=== PATIENT | female | born 1925 | race Caucasian/White ===

== ENCOUNTER 2016-08-08 04:53 | Inpatient (IN) | payer OTHER ==
[2016-08-08] MEDS ORDERED: ACETAMINOPHEN INJECTION 100 ML IVPB ONE (05:17)
--- NOTE | 2016-08-08 05:18 | PDOC ---
[id number]1RvFWLTJNFPNGXREZ0EOHRFcLCNHl2pWZUViKfTDNJPqO RsZQAAeJxztooJKMpPL0 jRgHnxMWszGC6DLIrBhelLyaQ2YcWRmcrvFz2hLr3TkuFQ8/ TIv6GQK6nVE82EYv0UvdmZYLtBITdjPhCrBNB6SlR8RxB9KSo9ZWF1TBZcUoAYbs5NBZkXMwUu3lg/ XFEEXQmDSNBNv4C7r3XeJJITjGvouF9Dk0pET0luUQQ1emDWsAG0IYWBIIDbaqeEuPUCFbNYGADNzBth tcLfvBJDEMvd708cRfBtoWZ + VIs2iAUFPL3zx6hycIa3U2IFOpumxFhB9OKVayGo6TkLMf0ZZIbiKJoWXQ5dXDw2lA1NRrVvFc4uHGaN ZqDKFtDNKEmg0nX07ND9y4m2K1KzX7TlppKTJsvN0ncjJupMdw6oEGG6SNqcXtm9RCo3pIU65dwvfueo GahIPQ /WoIAJG9wT+7gQV3AWaGJzr8CeYNlYMZob+ rS2YuN2gUqCjcjlPscHTQZJIil5WfakQS6tvbD5JW9RykO7rVU32++GFGIlQmHZDF0zvk8N9VTuCk// qufb2M+2mzL2Ka3rgp1jIkavW0bE+ 3yWctNQDbh29sx8dJqn07LQ5UVOXPMaj7tiV7J50D7bMSKQaTQjyWXsw5kia2SY3+IzpOtAs9+Zxa/ sug4ZNWhFS4h/3x+l/p0jj06xK2gTPhM9+ ALGN7zyG3fqKP676CdDMZqFjtE8G66qqM3B2YnQIjYoilXjKZV6zAxeqVPM6td3MEoBs/ pFwFrrg3Hi9cgu9JJvdhp8R57IN6/9nFlTpQbRzT/h0r2N0ed/+ V125iDD7pYbsy6APv1D1q36De0I2Or9nNfDCZ5LH9nb+4uMN3JAAIhK0/lr1rnYARtF+ EFmzOHqyNlPFJKV6BnWfiA57HvpnasHi3/ zg7v7WrCo4FjIORltKZq1IBFZpcfOJHyrbjJxICFBQMdHEOSV0WW9ky3r+AyFBuhweoqCM/QH+ EYqMixsF7LLONQKSVOLEH3SYTG= 08/08/16 05:14 - RADIOLOGY Radiology Studies Ordered: Category Date Time Status CHEST X-RAY PORTABLE* [RAD] Stat Radiology 08/08/16 05:09 Ordered Medical Decision Making - Medical Decision Making 08/08/16 05:17 agree with care from THOMAS BegumDC/Admit/Observation/Transfer Diagnosis at time of Disposition: CHF (congestive heart failure), Renal insufficiency, Pneumonia - Discharge Dispostion Condition at time of disposition: Stable
[2016-08-08 05:37] LABS: BASOPHIL 0.7 % (0-2.0); EOSINOPHIL 1.8 % (0-4.5); MCH 28.2 pg (25.7-33.7); MCHC 31.9 g/dl (32.0-36.0); MEAN CELL VOLUME 88.5 fl (80-96); MEAN PLT VOLUME 8.9 fl (7.5-11.1); NEUTROPHILS 77.2 % (42.8-82.8); PLATELET COUNT 180 K/MM3 (134-434); RDW 17.6 % (11.6-15.6)
[2016-08-08] MEDS ORDERED: LEVOFLOXACIN 500 MG IVPB 100 ML IVPB ONE ×2 (05:43→05:51)
[2016-08-08] MEDS ORDERED: methylPREDNISolone NA SUCC 125 MG/2 ML VIAL IVPB ONE (05:43)
[2016-08-08] MEDS ORDERED: AZITHROMYCIN IVPB 500 MG in DEXTROSE 5%-WATER - 250 ML IVPB ONE (05:43)
[2016-08-08 05:50] LABS: INR 1.15 (0.82-1.09); PROTHROMBIN TIME (PATIENT) 12.7 SEC (9.98-11.88)
[2016-08-08] MEDS ORDERED: methylPREDNISolone NA SUCC 125 MG/2 ML VIAL ONE (05:51)
--- NOTE | 2016-08-08 05:51 | PDOC ---
History of Present Illness - General Chief Complaint: Respiratory Stated Complaint: RESPIRATORY, PALPITATIONS Time Seen by Provider: 08/08/16 05:09 History Source: Patient Exam Limitations: No Limitations - History of Present Illness Initial Comments: 08/08/16 05:46 89yo Female patient presents to ED with family c/o diff breathing, cough and fever for past couple days. Both daughter states mother has been increasingly short of breath. One daughter reported given mother amoxicillin from a previous illness. Denies CP, Abd pain, n/v/d, back pain rash, or any other complaints at this time. Timing/Duration: reports: getting worse, week Severity: reports: severe Possible Cause: Yes: illness exposure Associated Symptoms: reports: cough, fever/chills, shortness of breath Aspirin Received prior to arrival: No: no aspirin today, unknown, 81 mg x 1, 81 mg x 2, 81 mg x 3, 81 mg x 4, 325 mg x 1, provided at home, provided by EMS, provided by ED Past History - Travel Traveled outside of the country in the last 30 days: No Close contact w/someone who was outside of country & ill: No - Past Medical History Allergies/Adverse Reactions: Allergies Allergy/AdvReac Type Severity Reaction Status Date / Time No Known Drug Allergies Allergy Verified 05/27/16 16:18 Home Medications: Ambulatory Orders Carvedilol [Coreg] 6.5 mg PO HS 11/18/13 Furosemide [Lasix -] 20 mg PO HS 11/18/13 Pantoprazole Sodium [Protonix -] 40 mg PO HS 11/18/13 Metolazone 5 mg PO HS 03/16/14 Ferrous Sulfate 325 mg PO DAILY 05/27/16 Simvastatin [Zocor -] 10 mg PO HS 05/27/16 Potassium Chloride Oral Soln [KCl Oral Solution -] 40 meq PO BID cup 05/31/16 Anemia: Yes Cardiac Disorders: Yes (CHF, NE, PACER) CHF: Yes Dementia: Yes GI Disorders: Yes (peptic ulcer,gi bleed) HTN: Yes Hypercholesterolemia: Yes Psychiatric Problems: Yes (ANXIETY) - Surgical History Abdominal Surgery: Yes (HERNIA; TUMOR REMOVED FROM SMALL INTESTINES) Cardiac Surgery: Yes (PACEMAKER) - Immunization History Td Vaccination: Yes Immunization Up to Date: Yes - Psycho/Social/Smoking Cessation Hx Anxiety: No Suicidal Ideation: No Smoking Status: No Smoking History: Never smoked Years of Tobacco Use: 0 Have you smoked in the past 12 months: No Number of Cigarettes Smoked Daily: 0 Cigars Per Day: 0 Information on smoking cessation initiated: No Hx Alcohol Use: No Drug/Substance Use Hx: No Substance Use Type: None Hx Substance Use Treatment: No Respiratory Specific PMHX - Complaint Specific PMHX Angina: No Bronchitis: Yes Pneumonia: Yes Pulmonary Embolus: No TB (Tuberculosis): No Review of Systems - Review of Systems Able to Perform ROS?: Yes Is the patient limited Ecuadorean proficient: Yes Constitutional: Yes: Fever, Malaise. No: Chills HEENTM: No: Nose Congestion Respiratory: Yes: Cough, Shortness of Breath Cardiac (ROS): No: Chest Pain, Palpitations ABD/GI: No: Diarrhea, Nausea, Vomiting : No: Burning, Dysuria, Hematuria Musculoskeletal: No: Back Pain All Other Systems: Reviewed and Negative *Physical Exam - Vital Signs Last Vital Signs Temp Pulse Resp BP Pulse Ox 102.0 F H 85 18 135/82 95 08/08/16 05:25 08/08/16 05:25 08/08/16 05:25 08/08/16 05:25 08/08/16 05:25 - Physical Exam General Appearance: Yes: Disheveled, Moderate Distress, Thin Neck: positive: Trachea midline, Supple Respiratory/Chest: positive: Labored Respiration, Crackles, Wheezing Cardiovascular: positive: Regular Rhythm, Regular Rate, Other (Pacemaker) Gastrointestinal/Abdominal: positive: Normal Bowel Sounds, Flat, Soft Musculoskeletal: positive: Normal Inspection. 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 NML intact, Alert, Normal Mood/Affect, Normal Response ED Treatment Course - LABORATORY CBC & Chemistry Diagram: 08/08/16 05:14 08/08/16 05:14 *DC/Admit/Observation/Transfer Diagnosis at time of Disposition: Renal insufficiency CHF (congestive heart failure) Qualifiers: Congestive heart failure type: unspecified congestive heart failure type Congestive heart failure chronicity: acute on chronic Qualified Code(s): I50.9 - Heart failure, unspecified Pneumonia Qualifiers: Pneumonia type: due to unspecified organism Laterality: right Lung location: lower lobe of lung Qualified Code(s): J18.9 - Pneumonia, unspecified organism - Discharge Dispostion Condition at time of disposition: Stable Admit: Yes Decision to Admit order Date/Time: 08/08/16 06:54 Dr. Ceja admit to Tele
[2016-08-08] MEDS ORDERED: SODIUM CHLORIDE 250 ML IV STA (05:56)
[2016-08-08] MEDS ORDERED: ACETAMINOPHEN 1000 MG/100 ML VIAL (NON FORMULARY) IVPB ONE (05:56)
[2016-08-08 06:01] LABS: ALBUMIN 3.1 g/dl (3.4-5.0); BILIRUBIN,TOTAL 0.5 mg/dL (0.2-1.0); CALCIUM 8.7 mg/dL (8.5-10.1); CREATININE 1.4 mg/dL (0.55-1.02); TOT PROT 6.9 g/dl (6.4-8.2)
[2016-08-08 06:04] LABS: TROPONIN I 0.07 ng/ml (0.00-0.05)
[2016-08-08 06:27] LABS: CALCIUM 8.9 mg/dL (8.5-10.1); MAGNESIUM 1.9 mg/dL (1.8-2.4)
[2016-08-08] MEDS ORDERED: AZITHROMYCIN IVPB 250 ML IVPB ONE (06:29)
--- NOTE | 2016-08-08 08:49 | HP ---
Admitting History and Physical - Primary Care Physician PCP: Calos Snell - Admission Chief Complaint: weakness, fever, dyspnea History of Present Illness: Got sick approx. two days ago with weakness, fever, cough without expectoration , dyspnea and chest tightness. Daughter gave her some amoxicillin left over from past. 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) Heme/Onc: Yes: Anemia - Past Surgical History Past Surgical History: Yes: Cataract Removal, Hernia Repair, Permanent Pacemaker - Advance Directives Advance Directives: No: Living Will, Health Care Proxy, DNR, Organ Donor, Tissue Donor - Smoking History Smoking history: Never smoked Have you smoked in the past 12 months: No Aproximately how many cigarettes per day: 0 - Alcohol/Substance Use Hx Alcohol Use: No - Social History Usual Living Arrangement: Yes: With Child ADL: Independent (needs supervision due to forgetfullness and disorientation but eats and toilets independently) Home Medications - Allergies Allergies/Adverse Reactions: Allergies Allergy/AdvReac Type Severity Reaction Status Date / Time No Known Drug Allergies Allergy Verified 05/27/16 16:18 - Home Medications Home Medications: Ambulatory Orders Carvedilol [Coreg] 6.5 mg PO HS 11/18/13 Furosemide [Lasix -] 20 mg PO HS 11/18/13 Pantoprazole Sodium [Protonix -] 40 mg PO HS 11/18/13 Metolazone 5 mg PO HS 03/16/14 Ferrous Sulfate 325 mg PO DAILY 05/27/16 Simvastatin [Zocor -] 10 mg PO HS 05/27/16 Potassium Chloride Oral Soln [KCl Oral Solution -] 40 meq PO BID cup 05/31/16 Family Disease History - Family Disease History Family History: Unable to Obtain Review of Systems Findings/Remarks: given by daughter - Review of Systems Constitutional: reports: Fever, Lethargy, Weakness. denies: Loss of Appetite Cardiovascular: reports: Palpitations, Shortness of Breath Respiratory: reports: Cough (unable to expectorate), SOB on Exertion. denies: Wheezing Genitourinary: reports: No Symptoms Musculoskeletal: reports: No Symptoms Integumentary: reports: No Symptoms Neurological: reports: No Symptoms Psychiatric: reports: No Symptoms Pain Intensity: 0 Physical Examination Vital Signs: Vital Signs Temperature 102.0 F H 08/08/16 05:25 Pulse Rate 62 08/08/16 07:41 Respiratory Rate 18 08/08/16 07:41 Blood Pressure 103/48 08/08/16 07:41 O2 Sat by Pulse Oximetry (%) 96 08/08/16 07:41 Constitutional: Yes: No Distress, Calm, Other (lying flat on her back) Eyes: Yes: EOM Intact HENT: Yes: Normocephalic Neck: Yes: Trachea Midline Cardiovascular: Yes: Regular Rate and Rhythm, Murmur Respiratory: Yes: Rales (at left base), Rhonchi (scattered) Gastrointestinal: Yes: Normal Bowel Sounds, Soft Edema: Yes Edema: LLE: Trace, RLE: 2+ (chronic) Peripheral Pulses WNL: Yes Neurological: Yes: WNL (oriented to hospital) ...Motor Strength: WNL Psychiatric: Yes: WNL Labs: Laboratory Results - last 24 hr 08/08/16 08/08/16 08/08/16 05:14 05:14 05:14 WBC 7.0 RBC 4.08 Hgb 11.5 Hct 36.1 MCV 88.5 MCHC 31.9 L RDW 17.6 H D Plt Count 180 D MPV 8.9 Neutrophils % 77.2 Lymphocytes % 10.6 D Monocytes % 9.7 Eosinophils % 1.8 Basophils % 0.7 INR 1.15 H Sodium 140 Potassium 4.2 D Chloride 106 Carbon Dioxide 30 Anion Gap 4 L BUN 30 H D Creatinine 1.4 H Creat Clearance w eGFR 35.41 Random Glucose 125 H D Lactic Acid Calcium 8.7 Phosphorus Magnesium Total Bilirubin 0.5 D AST 20 ALT 18 Alkaline Phosphatase 51 Creatine Kinase 40 Troponin I 0.07 H B-Natriuretic Peptide Total Protein 6.9 Albumin 3.1 L 08/08/16 08/08/16 08/08/16 05:14 05:14 05:14 Lactic Acid 1.145 Calcium 8.9 Phosphorus 3.0 D Magnesium 1.9 B-Natriuretic Peptide 26780.76 H Imaging - Results Chest X-ray: Report Reviewed Problem List - Problems (1) CHF (congestive heart failure) Code(s): I50.9 - HEART FAILURE, UNSPECIFIED Qualifiers: Congestive heart failure type: systolic Congestive heart failure chronicity: acute on chronic Qualified Code(s): I50.23 - Acute on chronic systolic (congestive) heart failure (2) Pneumonia Code(s): J18.9 - PNEUMONIA, UNSPECIFIED ORGANISM Qualifiers: Pneumonia type: due to unspecified organism Laterality: right Lung location: lower lobe of lung Qualified Code(s): J18.9 - Pneumonia, unspecified organism (3) Renal insufficiency Code(s): N28.9 - DISORDER OF KIDNEY AND URETER, UNSPECIFIED (4) Anemia Code(s): D64.9 - ANEMIA, UNSPECIFIED Qualifiers: Anemia type: unspecified type Qualified Code(s): D64.9 - Anemia, unspecified (5) Chronic kidney disease (CKD) Code(s): N18.9 - CHRONIC KIDNEY DISEASE, UNSPECIFIED Qualifiers: Chronic kidney disease stage: stage 3 (moderate) Qualified Code(s): N18.3 - Chronic kidney disease, stage 3 (moderate) (6) Dementia arising in the senium and presenium Code(s): F03.90 - UNSPECIFIED DEMENTIA WITHOUT BEHAVIORAL DISTURBANCE Assessment/Plan cultures iv abx iv diuresis cardiac and ID f/up requested d/w daughter-no advanced directives
--- NOTE | 2016-08-08 09:56 | EKG ---
Test Reason : Blood Pressure : / mmHG Vent. Rate : 091 BPM Atrial Rate : 077 BPM P-R Int : 132 ms QRS Dur : 174 ms QT Int : 416 ms P-R-T Axes : 034 -73 096 degrees QTc Int : 511 ms AV SEQUENTIAL OR DUAL CHAMBER ELECTRONIC PACEMAKER WHEN COMPARED WITH ECG OF 28-MAY-2016 12:44, VENT. RATE HAS INCREASED BY 29 BPM Confirmed by GABRIEL CAMPOS MD ([id number]) on 08/08/2016 9:56:09 AM Referred By: Overread By: GABRIEL CAMPOS MD
[2016-08-08] MEDS ORDERED: CEFTRIAXONE 50 ML IVPB SCH (10:00)
[2016-08-08] MEDS ORDERED: FUROSEMIDE 40 MG/4 ML INJECTABLE VIAL IVPUSH SCH (10:00)
[2016-08-08] MEDS ORDERED: POTASSIUM CHLORIDE 40 MEQ/30 ML UNIT DOSE CUP PO SCH (10:00)
[2016-08-08] MEDS ORDERED: FERROUS SO4 325 MG TABLET (FP) PO SCH (10:00)
[2016-08-08] MEDS ORDERED: CARVEDILOL 3.125 MG TABLET (FP) PO SCH (10:00)
[2016-08-08] MEDS ORDERED: CEFTRIAXONE 50 ML ONE (11:00)
[2016-08-08] MEDS ORDERED: FUROSEMIDE 40 MG/4 ML INJECTABLE VIAL ONE (11:01)
--- NOTE | 2016-08-08 12:04 | PN ---
Progress Note (short form) - Note Progress Note: ID consult dictated imp/reccd 89 year old female with mild dementia, CAD lives at home with daughters, daughter had flu with fever, cough 07/30 treated with tamiflu she developed cough new years randy and has had cough with fever since then temp 102 in Ed cxray no clear infiltrate, congestion, ?right base effusion/atelectasis/ infiltrate cough/fever- influenza/pneumonia although influenza screen is negative I have high suspicion for influenza reccd droplet isolation tamiflu levaquin cultures
[2016-08-08] MEDS: OSELTAMIVIR PHOSPHATE 6 MG/1 ML - 60ML BOTTLE PO SCH ×2 (13:15→21:29)
[2016-08-08 13:26] LABS: TROPONIN I 0.07 ng/ml (0.00-0.05)
--- NOTE | 2016-08-08 14:11 | CONS ---
DATE OF CONSULTATION: DATE OF DICTATION: 08/08/2016 HISTORY OF PRESENT ILLNESS: This is an 89-year-old woman. She lives at home with her daughters. She has a history of a fever, cough that started New Year's Martine. Several days prior to this, her daughter was in the emergency room at [facility] where she was diagnosed with influenza and started on Tamiflu. The daughter has been giving her some amoxicillin and Tylenol at home. She has continued to have fever and cough. She comes to the emergency room with complaints of weakness, cough, shortness of breath, and chest tightness. She is currently resting comfortably. She had a fever of 102 on admission. PAST MEDICAL HISTORY: Notable for mild dementia, she is Chinese speaking, aortic stenosis, coronary artery disease, hypertension, diverticulosis, she has a history of GI bleed in the past due to AVMs and a history of anemia. SURGICAL HISTORY: Notable for hernia repair, permanent pacemaker, and cataract. SOCIAL HISTORY: She lives with her daughters. There is no history of any cigarette or substance use. ALLERGIES: She has no known drug allergies. MEDICATIONS: As an outpatient include:1. Coreg. 2. Lasix. 3. Protonix. 4. Metolazone. 5. Ferrous sulfate. 6. Zocor. 7. Potassium. REVIEW OF SYSTEMS: She has been eating well. There has been no nausea, vomiting, diarrhea, or dysuria. PHYSICAL EXAMINATION: VITAL SIGNS: Her temperature was 102, pulse of 62, blood pressure is 103/48, respiratory rate is 18, her O2 saturation is 96% on 4 L, she weighs 90 pounds. HEENT: Normocephalic. Eyes are anicteric. NECK: Supple. LUNGS: Have crackles at both bases. HEART: Regular rate and rhythm. She has a harsh 2/6 systolic murmur. ABDOMEN: Soft, nontender. EXTREMITIES: Without edema. LABORATORIES: Her labs are notable for a white count of 7, hemoglobin 11.5, platelets of 180. INR is 1.15. BUN is 30 and creatinine 1.4 with a glucose of 125. Her influenza screen in the emergency room was negative, and blood cultures are pending. Chest x-ray shows cardiomegaly with congestion, question of a small right pleural effusion versus atelectasis versus small infiltrate. ASSESSMENT: In summary, this is an 89-year-old woman with fever and cough. Although influenza screen is negative, I have a high suspicion for influenza given the recent illness in her daughter. I would recommend droplet isolation, Tamiflu and Levaquin for possible pneumonia as well. She may have mild CHF as well. Would follow up cultures. Check a Legionella urinary antigen for completeness. Sputum culture if possible. CHEY LEDBETTER M.D. [id number]
[2016-08-08 15:43] VITALS: BMI 17.5
--- NOTE | 2016-08-08 17:25 | CONSULT ---
Consultation: REQUESTING PROVIDER: CONSULT REQUEST: We have been asked to medically evaluate this patient for suspected Influenza. HISTORY OF PRESENT ILLNESS: 89 yo F with significant PMHx of CHF s/p ICD, CAD, and dementia presents with a 4 day history of productive cough and worsening SOB. Granddaughter is her historian and states that for the past 4 days her grandmother has had a very productive(green sputum) cough with associated shortness of breath. Denies any hemoptysis. Her family members at home were all diagnosed with Influenza over the holidays.(07/2016). She had fevers at home Tmax-100.7 that resolved with PO tylenol. She was given Amoxicillin 875 x4 and promethazine for cough. NO exacerbating or alleviating factors. Denies CP, FLORES, palpitations, abd. pain , N/ V/D/C. REVIEW OF SYSTEMS: CONSTITUTIONAL:(+) fever, chills, diaphoresis, generalized weakness, malaise, loss of appetite, Absent: weight change HEENT: Absent: rhinorrhea, nasal congestion, throat pain, throat swelling, difficulty swallowing, mouth swelling, ear pain, eye pain, visual changes CARDIOVASCULAR: Absent: chest pain, syncope, palpitations, irregular heart rate, lightheadedness , peripheral edema RESPIRATORY: (+)cough, shortness of breath, Absent: dyspnea with exertion, orthopnea, wheezing, stridor, hemoptysis GASTROINTESTINAL: Absent: abdominal pain, abdominal distension, nausea, vomiting, diarrhea, constipation, melena, hematochezia GENITOURINARY: Absent: dysuria, frequency, urgency, hesitancy, hematuria, flank pain, genital pain MUSCULOSKELETAL: Absent: myalgia, arthralgia, joint swelling, back pain, neck pain SKIN: Absent: rash, itching, pallor HEMATOLOGIC/IMMUNOLOGIC: Absent: easy bleeding, easy bruising, lymphadenopathy, frequent infections ENDOCRINE: Absent: unexplained weight gain, unexplained weight loss, heat intolerance, cold intolerance NEUROLOGIC: Absent: headache, focal weakness or paresthesias, dizziness, unsteady gait, seizure, mental status changes, bladder or bowel incontinence PSYCHIATRIC: (+) dementia Absent: anxiety, depression, suicidal or homicidal ideation, hallucinations. PHYSICAL EXAMINATION Vital Signs - 24 hr 08/08/16 08/08/16 08/08/16 07:41 11:45 13:49 Temperature 97.5 F L Pulse Rate Pulse Rate [ 62 65 63 Radial] Respiratory 18 18 18 Rate Blood Pressure Blood Pressure 103/48 104/51 108/54 [Left Arm] O2 Sat by Pulse 96 96 96 Oximetry (%) 08/08/16 15:33 Temperature Pulse Rate 61 Pulse Rate [ Radial] Respiratory 18 Rate Blood Pressure 108/49 Blood Pressure [Left Arm] O2 Sat by Pulse 96 Oximetry (%) GENERAL:Thin, frail AAO x 2 in no acute distress. HEAD: Normal with no signs of trauma. EYES: Pupils equal, round and reactive to light, extraocular movements intact, sclera anicteric, conjunctiva clear. No lid lag. EARS, NOSE, THROAT: Ears normal, nares patent, oropharynx clear without exudates. Moist mucous membranes. NECK: Normal range of motion, supple without lymphadenopathy, JVD, or masses. LUNGS:Bilateral scattered rhonchi. Bibasilar fine crackles. No wheezes,No accessory muscle use. HEART: Regular rate and rhythm, normal S1 and S2 with 3/6 systolic ejection murmur. ABDOMEN: Soft, nontender,ventral hernia,not distended, normoactive bowel sounds , no guarding, no rebound, no masses. No hepatomegaly or splenomegaly. MUSCULOSKELETAL: Normal range of motion at all joints. No bony deformities or tenderness. No CVA tenderness. UPPER EXTREMITIES: 2+ pulses, warm, well-perfused. No cyanosis. No clubbing. Cap refill <2 seconds. No peripheral edema. LOWER EXTREMITIES: 2+ pulses, warm, well-perfused. No calf tenderness. trace edema LLE and 1+ RLE. NEUROLOGICAL: Cranial nerves II-XII intact. Normal speech. gait not obeserved. Pleasantly demented (currently at baseline.) PSYCHIATRIC: Cooperative. Good eye contact. Appropriate mood and affect. SKIN: Warm, dry, normal turgor, no rashes or lesions noted. Laboratory Results - last 24 hr 08/08/16 12:40 Creatine Kinase 28 Troponin I 0.07 H Active Medications Generic Name Dose Route Start Last Admin Trade Name Freq PRN Reason Stop Dose Admin Atorvastatin Calcium 10 mg 08/08/16 22:00 Lipitor - PO HS MARVIN Carvedilol 3.125 mg 08/08/16 10:00 08/08/16 11:11 Coreg - PO 3.125 mg BID MARVIN Administration Ferrous Sulfate 325 mg 08/08/16 10:00 08/08/16 11:11 Feosol - PO 325 mg DAILY MARVIN Administration Furosemide 40 mg 08/08/16 10:00 08/08/16 11:11 Lasix Injection - IVPUSH 40 mg DAILY MARVIN Administration Levofloxacin 50 mls @ 50 mls/hr 08/09/16 10:00 Levaquin 250 Mg Premixed Ivpb - IVPB DAILY MARVIN Metolazone 5 mg 08/08/16 22:00 Zaroxolyn - PO HS MARVIN Oseltamivir Phosphate 60 mg 08/08/16 12:30 08/08/16 13:15 Tamiflu Oral Suspension - PO 08/12/16 22:01 60 mg BID MARVIN Administration Pantoprazole Sodium 40 mg 08/08/16 22:00 Protonix - PO HS MARVIN Potassium Chloride 40 meq 08/08/16 10:00 08/08/16 11:11 Kcl Oral Solution - PO 40 meq BID MARVIN Administration ASSESSMENT/PLAN: 89 yo F with PMHx CHF, CAD, and dementia admitted for Influenza PNA. Neuro: * Baseline dementia. * h/o TIA 2 mo ago- no ASA due to h/o GI bleeds. * Alprazolam 0.5 mg PRN * Ambien 5mg PO HS Pulmonary: * On dropplet precautions for presumptive Influenza * Continue Tamiflu * Given Levofloxacin 250mg as per ID. * Given 125mg IV solumedrol in ED. * ID consult appreciated. * Supplemental O2 to maintain O2 sat>90% * repeat CXR and labs in AM * follow up Cultures CV: * ICD currently being paced. * h/o Aortic and Mitral valve disease- last echo 6mo ago. with Dr. Snell * Atorvastatin Calcium (Lipitor -) 10 mg PO HS * Carvedilol (Coreg -) 3.125 mg PO BID * Furosemide (Lasix Injection -) 40 mg IVPUSH DAILY * Metalozone 5mg PO HS * HD stable at this time * history of GI bleeds requiring transfusion (last one >1yr ago); On iron supplementation. GI: * h/o GI bleeds * follow H/H * NO ASA Renal: * KO most likely pre-renal Dispo: We will continue to follow the patient. Thank you for this consultative opportunity. Visit type - Emergency Visit Emergency Visit: Yes ED Registration Date: 08/08/16 Care time: The patient presented to the Emergency Department on the above date and was hospitalized for further evaluation of their emergent condition. - New Patient This patient is new to me today: Yes Date on this admission: 08/09/16 - Critical Care Critical Care patient: Yes Total Critical Care Time (in minutes): 33 Critical Care Statement: The care of this patient involved high complexity decision making to prevent further life threatening deterioration of the patient 's condition and/or to evalute & treat vital organ system(s) failure or risk of failure.
--- NOTE | 2016-08-08 19:29 | CONSULT ---
Cardiology Consult (text) - Consultation Consultation Note: Cardiology 89 year old female severe , LV mildly decreased, anemia unknown etiology admitted with flu symptoms PE: vitals stable NASH 4-5/6 lungs clear to decreased breath sounds abdomen soft no leg edema Impression: severe aortic stenosis DDD paced functioning well maybe mild CHF, but BNP very high with mild to moderate CRF Rec: Diurese on metolazone continue current RX Can be discharged with outpatient cardiac follow-up
--- NOTE | 2016-08-08 20:59 | CONSULT ---
Consult Consult Specialty:: Pulm/CCM Reason for Consultation:: Respiratory insufficiency - History of Present Illness Chief Complaint: SOB History of Present Illness: 89 yo F with significant PMHx of CHF s/p ICD, CAD, and dementia presents to ED with c/o productive cough, fever and worsening SOB x4days. As per her granddaughter multiple family members at home were all diagnosed with Influenza over the holidays (07/2016). She was given Amoxicillin 875 x4 and promethazine for cough. She denied CP, FLORES, palpitations, abd. pain , N/V/D/C. In ED VS T102F, HR 85, 135/82, RR18, 95% on room air. Flu swab sent and she was started on Tamiflu and Levaquin for possible flu and CAP coverage. Notable labs WBC 7., BNP, 11, 637, BUN/creat 30/1.4. Cards consulted. Diuresis and cardiac monitoring recommended. 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) - Past Surgical History Past Surgical History: Yes: Cataract Removal, Hernia Repair, Permanent Pacemaker - Alcohol/Substance Use Hx Alcohol Use: No - Smoking History Smoking history: Never smoked Have you smoked in the past 12 months: No Aproximately how many cigarettes per day: 0 - Social History ADL: Independent (needs supervision due to forgetfullness and disorientation but eats and toilets independently) Home Medications - Allergies Allergies/Adverse Reactions: Allergies Allergy/AdvReac Type Severity Reaction Status Date / Time No Known Drug Allergies Allergy Verified 05/27/16 16:18 - Home Medications Home Medications: Ambulatory Orders Carvedilol [Coreg] 6.5 mg PO HS 11/18/13 Furosemide [Lasix -] 20 mg PO HS 11/18/13 Pantoprazole Sodium [Protonix -] 40 mg PO HS 11/18/13 Metolazone 5 mg PO HS 03/16/14 Ferrous Sulfate 325 mg PO DAILY 05/27/16 Simvastatin [Zocor -] 10 mg PO HS 05/27/16 Potassium Chloride Oral Soln [KCl Oral Solution -] 40 meq PO BID cup 05/31/16 Family Disease History - Family Disease History Family History: Unremarkable Review of Systems Unable to obtain ROS, reason: Dementia Physical Exam Vital Signs: Vital Signs Temperature 97.6 F 08/08/16 16:57 Pulse Rate 68 08/08/16 16:49 Respiratory Rate 28 H 08/08/16 16:49 Blood Pressure 111/53 08/08/16 16:49 O2 Sat by Pulse Oximetry (%) 94 L 08/08/16 17:00 Constitutional: Yes: No Distress, Thin Eyes: Yes: WNL HENT: Yes: Normocephalic Neck: Yes: WNL Cardiovascular: Yes: Other (Paced, AICD) Respiratory: Yes: CTA Bilaterally Gastrointestinal: Yes: Normal Bowel Sounds, Soft Renal/: Yes: WNL Extremities: Yes: WNL Edema: No Peripheral Pulses WNL: Yes Integumentary: Yes: WNL Neurological: Yes: Other (Pleasantly demented) Psychiatric: Yes: WNL, Alert Labs: CBC,CMP WBC 7.0 K/mm3 (4.0-10.0) 08/08/16 05:14 RBC 4.08 M/mm3 (3.60-5.2) 08/08/16 05:14 Hgb 11.5 GM/dL (10.7-15.3) 08/08/16 05:14 Hct 36.1 % (32.4-45.2) 08/08/16 05:14 MCV 88.5 fl (80-96) 08/08/16 05:14 MCHC 31.9 g/dl (32.0-36.0) L 08/08/16 05:14 RDW 17.6 % (11.6-15.6) H D 08/08/16 05:14 Plt Count 180 K/MM3 (134-434) D 08/08/16 05:14 MPV 8.9 fl (7.5-11.1) 08/08/16 05:14 Neutrophils % 77.2 % (42.8-82.8) 08/08/16 05:14 Lymphocytes % 10.6 % (8-40) D 08/08/16 05:14 Monocytes % 9.7 % (3.8-10.2) 08/08/16 05:14 Eosinophils % 1.8 % (0-4.5) 08/08/16 05:14 Basophils % 0.7 % (0-2.0) 08/08/16 05:14 Sodium 140 mmol/L (136-145) 08/08/16 05:14 Potassium 4.2 mmol/L (3.5-5.1) D 08/08/16 05:14 Chloride 106 mmol/L (98-107) 08/08/16 05:14 Carbon Dioxide 30 mmol/L (21-32) 08/08/16 05:14 Anion Gap 4 (8-16) L 08/08/16 05:14 BUN 30 mg/dL (7-18) H D 08/08/16 05:14 Creatinine 1.4 mg/dL (0.55-1.02) H 08/08/16 05:14 Creat Clearance w eGFR 35.41 (>60) 08/08/16 05:14 Random Glucose 125 mg/dL (74-106) H D 08/08/16 05:14 Lactic Acid 1.145 mmol/L (0.4-2.0) 08/08/16 05:14 Calcium 8.9 mg/dL (8.5-10.1) 08/08/16 05:14 Phosphorus 3.0 mg/dL (2.5-4.9) D 08/08/16 05:14 Magnesium 1.9 mg/dL (1.8-2.4) 08/08/16 05:14 Total Bilirubin 0.5 mg/dL (0.2-1.0) D 08/08/16 05:14 AST 20 U/L (15-37) 08/08/16 05:14 ALT 18 U/L (12-78) 08/08/16 05:14 Alkaline Phosphatase 51 U/L (45-117) 08/08/16 05:14 Creatine Kinase 28 IU/L (26-192) 08/08/16 12:40 Troponin I 0.07 ng/ml (0.00-0.05) H 08/08/16 12:40 B-Natriuretic Peptide 80618.76 pg/ml (5-450) H 08/08/16 05:14 Total Protein 6.9 g/dl (6.4-8.2) 08/08/16 05:14 Albumin 3.1 g/dl (3.4-5.0) L 08/08/16 05:14 Assessment/Plan 89 yo F with significant PMHx of CHF s/p ICD, CAD, and dementia presents to ED with c/o productive cough, fever and worsening SOB x4days. Started on Flu and CAP coverage. Noted to have elevated BNP. Admitted to ICU with respiratory insufficiency requiring O2 support in setting of CAP+/- CHF exacerbation. Pulm/ID: Respiratory insufficiency -O2 support for o2 sat >95% -Cough control Pulm tilet -Aspiration precaution -Continue Tamiflu and Levaquin -F/u swabs and cultures -Maintain droplet precautions pending result CV: ? CHF exacerbation as e/b elevated BNP; Paced , AICD -Cards consult -Diuresis -ECHO -Replete electrolytes -Cont statin Proph PPI/ venodynes
[2016-08-08] MEDS: ATORVASTATIN CA 10 MG TABLET (FP) PO SCH (21:04)
[2016-08-08] MEDS: PANTOPRAZOLE 40 MG TABLET (FP) PO SCH (21:04)
[2016-08-08] MEDS: CARVEDILOL 3.125 MG TABLET (FP) PO SCH (21:04)
[2016-08-08] MEDS: METOLAZONE 5 MG TABLET PO SCH (21:06)
[2016-08-08] MEDS: POTASSIUM CHLORIDE 40 MEQ/30 ML UNIT DOSE CUP PO SCH (21:06)
[2016-08-08] MEDS: ALPRAZolam 0.25 MG TABLET PO PRN (21:09)
[2016-08-08] MEDS ORDERED: METOLAZONE 5 MG TABLET PO SCH (22:00)
[2016-08-08] MEDS ORDERED: ATORVASTATIN CA 10 MG TABLET (FP) PO SCH (22:00)
[2016-08-08] MEDS ORDERED: PANTOPRAZOLE 20 MG TABLET (FP) PO SCH (22:00)
[2016-08-09 05:59] LABS: BASOPHIL 0.1 % (0-2.0); MCH 28.3 pg (25.7-33.7); MCHC 32.3 g/dl (32.0-36.0); MEAN CELL VOLUME 87.6 fl (80-96); MEAN PLT VOLUME 8.7 fl (7.5-11.1); NEUTROPHILS 75.3 % (42.8-82.8); PLATELET COUNT 193 K/MM3 (134-434); RDW 16.6 % (11.6-15.6); WHITE BLOOD COUNT 4.9 K/mm3 (4.0-10.0)
[2016-08-09 07:22] LABS: ALBUMIN 2.5 g/dl (3.4-5.0); BILIRUBIN,TOTAL 0.3 mg/dL (0.2-1.0); CALCIUM 8.6 mg/dL (8.5-10.1); CREATININE 1.5 mg/dL (0.55-1.02)
--- NOTE | 2016-08-09 08:21 | PN ---
Progress Note (short form) - Note Progress Note: Admitted for fever, lethargy, pneumonia and flu like symptoms. Feels better now. CBC, BMP 08/09/16 05:00 08/09/16 05:00 Vital Signs Period Temp Pulse Resp BP Sys/Torre Pulse Ox Last 24 Hr 97.5 F-98.2 F 61-77 18-32 104-125/49-76 94-96 S1S2 RRR coarse basal rales abd soft NT no edema Imp CHF acute on chronic systolic pneumonia CAD flu-like symptoms HTN CKD Dementia Plan transfer to medical floor continue present care consults appreciated Problem List - Problems (1) CHF (congestive heart failure) Code(s): I50.9 - HEART FAILURE, UNSPECIFIED Qualifiers: Congestive heart failure type: systolic Congestive heart failure chronicity: acute on chronic Qualified Code(s): I50.23 - Acute on chronic systolic (congestive) heart failure (2) Pneumonia Code(s): J18.9 - PNEUMONIA, UNSPECIFIED ORGANISM Qualifiers: Pneumonia type: due to unspecified organism Laterality: right Lung location: lower lobe of lung Qualified Code(s): J18.9 - Pneumonia, unspecified organism (3) Renal insufficiency Code(s): N28.9 - DISORDER OF KIDNEY AND URETER, UNSPECIFIED (4) Anemia Code(s): D64.9 - ANEMIA, UNSPECIFIED Qualifiers: Anemia type: unspecified type Qualified Code(s): D64.9 - Anemia, unspecified (5) Chronic kidney disease (CKD) Code(s): N18.9 - CHRONIC KIDNEY DISEASE, UNSPECIFIED Qualifiers: Chronic kidney disease stage: stage 3 (moderate) Qualified Code(s): N18.3 - Chronic kidney disease, stage 3 (moderate) (6) Dementia arising in the senium and presenium Code(s): F03.90 - UNSPECIFIED DEMENTIA WITHOUT BEHAVIORAL DISTURBANCE
--- NOTE | 2016-08-09 08:22 | PN ---
Progress Note (short form) - Note Progress Note: Feel better less cough Vital Signs Period Temp Pulse Resp BP Sys/Torre Pulse Ox Last 24 Hr 97.5 F-98.2 F 61-77 18-32 104-125/49-76 94-96 cor-rrr lungs bibasilar crackles abd soft,nt ext no edema CBC, BMP 08/09/16 05:00 08/09/16 05:00 Microbiology 08/08/16 05:17 Blood - Peripheral Venous Blood Culture - Preliminary NO GROWTH OBTAINED AFTER 24 HOURS, INCUBATION TO CONTINUE FOR 4 DAYS. 08/08/16 05:14 Blood - Peripheral Venous Blood Culture - Preliminary NO GROWTH OBTAINED AFTER 24 HOURS, INCUBATION TO CONTINUE FOR 4 DAYS. 08/08/16 05:14 Nasopharyngeal Swab Respiratory Virus Panel - Preliminary 08/08/16 05:14 Nasopharyngeal Swab Influenza Types A,B Antigen (JOJO) - Final 08/08/16 05:14 Nasopharyngeal Swab - Final cxray- congestion Current Medications Alprazolam (Xanax -) 0.5 mg PO HS PRN PRN Reason: ANXIETY Last Admin: 08/08/16 21:09 Dose: 0.5 mg Atorvastatin Calcium (Lipitor -) 10 mg PO HS [facility] Last Admin: 08/08/16 21:04 Dose: 10 mg Carvedilol (Coreg -) 3.125 mg PO BID [facility] Last Admin: 08/08/16 21:04 Dose: 3.125 mg Ferrous Sulfate (Feosol -) 325 mg PO DAILY [facility] Furosemide (Lasix Injection -) 40 mg IVPUSH DAILY [facility] Levofloxacin (Levaquin 250 Mg Premixed Ivpb -) 50 mls @ 50 mls/hr IVPB DAILY [facility] Metolazone (Zaroxolyn -) 5 mg PO HS [facility] Last Admin: 08/08/16 21:06 Dose: 5 mg Oseltamivir Phosphate (Tamiflu Oral Suspension -) 60 mg PO BID [facility] Stop: 08/12/16 22:01 Last Admin: 08/08/16 21:29 Dose: 60 mg Pantoprazole Sodium (Protonix -) 40 mg PO HS [facility] Last Admin: 08/08/16 21:04 Dose: 40 mg Potassium Chloride (Kcl Oral Solution -) 40 meq PO BID [facility] Last Admin: 08/08/16 21:06 Dose: 40 meq a/p fever/cough- cannot r/o pneumonia or influenza continue tamiflu and levaquin f/u cultures f/u legionella antigen chf/cad/aortic stenosis- per cardiology shona- Problem List - Problems (1) Pneumonia Code(s): J18.9 - PNEUMONIA, UNSPECIFIED ORGANISM Qualifiers: Pneumonia type: due to unspecified organism Laterality: right Lung location: lower lobe of lung Qualified Code(s): J18.9 - Pneumonia, unspecified organism (2) CHF (congestive heart failure) Code(s): I50.9 - HEART FAILURE, UNSPECIFIED Qualifiers: Congestive heart failure type: systolic Congestive heart failure chronicity: acute on chronic Qualified Code(s): I50.23 - Acute on chronic systolic (congestive) heart failure (3) Renal insufficiency Code(s): N28.9 - DISORDER OF KIDNEY AND URETER, UNSPECIFIED
[2016-08-09] MEDS ORDERED: PT OWN MED DRAWER 7, Y5N ONE ×4 (08:44→20:46)
[2016-08-09] MEDS: POTASSIUM CHLORIDE 40 MEQ/30 ML UNIT DOSE CUP PO SCH (09:59)
[2016-08-09] MEDS: LEVOFLOXACIN 250 MG IVPB 50 ML IVPB SCH (09:59)
[2016-08-09] MEDS: CARVEDILOL 3.125 MG TABLET (FP) PO SCH ×2 (09:59→21:18)
[2016-08-09] MEDS: FUROSEMIDE 40 MG/4 ML INJECTABLE VIAL IVPUSH SCH (09:59)
[2016-08-09] MEDS: OSELTAMIVIR PHOSPHATE 6 MG/1 ML - 60ML BOTTLE PO SCH ×2 (10:00→21:19)
[2016-08-09] MEDS ORDERED: AZITHROMYCIN 250 MG TABLET (FP) PO SCH (10:00)
[2016-08-09] MEDS ORDERED: FERROUS SO4 325 MG TABLET (FP) PO SCH (10:00)
--- NOTE | 2016-08-09 11:29 | PN ---
Physical Exam: SUBJECTIVE: Patient seen and examined at bedside. No overnight events. No new complaints. Feeling better. Breathing improved. Denies CP, FLORES, Palpitations, N/ V. OBJECTIVE: Vital Signs Period Temp Pulse Resp BP Sys/Torre Pulse Ox Last 24 Hr 97.5 F-98.2 F 61-77 18-32 104-125/49-76 94-96 GENERAL:Thin, frail AAO x 2 in no acute distress. HEAD: Normal with no signs of trauma. EYES: Pupils equal, round and reactive to light, extraocular movements intact, sclera anicteric, conjunctiva clear. No lid lag. EARS, NOSE, THROAT: Ears normal, nares patent, oropharynx clear without exudates. Moist mucous membranes. NECK: Normal range of motion, supple without lymphadenopathy, JVD, or masses. LUNGS:Bilateral scattered rhonchi. Bibasilar fine crackles. No wheezes,No accessory muscle use. HEART: Regular rate and rhythm, normal S1 and S2 with 3/6 systolic ejection murmur. ABDOMEN: Soft, nontender,ventral hernia,not distended, normoactive bowel sounds , no guarding, no rebound, no masses. No hepatomegaly or splenomegaly. MUSCULOSKELETAL: Normal range of motion at all joints. No bony deformities or tenderness. No CVA tenderness. UPPER EXTREMITIES: 2+ pulses, warm, well-perfused. No cyanosis. No clubbing. Cap refill <2 seconds. No peripheral edema. LOWER EXTREMITIES: 2+ pulses, warm, well-perfused. No calf tenderness. trace edema LLE and 1+ RLE. NEUROLOGICAL: Cranial nerves II-XII intact. Normal speech. gait not obeserved. Pleasantly demented (currently at baseline.) PSYCHIATRIC: Cooperative. Good eye contact. Appropriate mood and affect. SKIN: Warm, dry, normal turgor, no rashes or lesions noted. Laboratory Results - last 24 hr 08/08/16 08/09/16 08/09/16 12:40 05:00 05:00 WBC 4.9 RBC 3.97 Hgb 11.2 Hct 34.8 MCV 87.6 MCHC 32.3 RDW 16.6 H Plt Count 193 MPV 8.7 Neutrophils % 75.3 Lymphocytes % 15.0 D Monocytes % 9.6 Eosinophils % 0.0 D Basophils % 0.1 Sodium 147 H Potassium 4.9 Chloride 110 H Carbon Dioxide 32 Anion Gap 5 L BUN 35 H Creatinine 1.5 H Creat Clearance w eGFR 32.70 Random Glucose 107 H Calcium 8.6 Total Bilirubin 0.3 D AST 11 L D ALT 15 Alkaline Phosphatase 44 L Creatine Kinase 28 Troponin I 0.07 H Total Protein 6.0 L Albumin 2.5 L Active Medications Generic Name Dose Route Start Last Admin Trade Name Freq PRN Reason Stop Dose Admin Alprazolam 0.5 mg 08/08/16 19:30 08/08/16 21:09 Xanax - PO 0.5 mg HS PRN Administration ANXIETY Atorvastatin Calcium 10 mg 08/08/16 22:00 08/08/16 21:04 Lipitor - PO 10 mg HS [facility] Administration Carvedilol 3.125 mg 08/08/16 22:00 08/09/16 09:59 Coreg - PO 3.125 mg BID [facility] Administration Ferrous Sulfate 325 mg 08/09/16 10:45 Feosol - PO DAILY [facility] Furosemide 40 mg 08/09/16 10:00 08/09/16 09:59 Lasix Injection - IVPUSH 40 mg DAILY [facility] Administration Levofloxacin 50 mls @ 50 mls/hr 08/09/16 10:00 08/09/16 09:59 Levaquin 250 Mg Premixed Ivpb - IVPB 50 mls/hr DAILY [facility] Administration Metolazone 5 mg 08/08/16 22:00 08/08/16 21:06 Zaroxolyn - PO 5 mg HS [facility] Administration Oseltamivir Phosphate 60 mg 08/08/16 12:30 08/09/16 10:00 Tamiflu Oral Suspension - PO 08/12/16 22:01 60 mg BID [facility] Administration Pantoprazole Sodium 40 mg 08/08/16 22:00 08/08/16 21:04 Protonix - PO 40 mg HS [facility] Administration Potassium Chloride 40 meq 08/08/16 22:00 08/09/16 09:59 Kcl Oral Solution - PO 40 meq BID [facility] Administration ASSESSMENT/PLAN: 89 yo F with PMHx CHF, CAD, and dementia admitted for Influenza PNA. Neuro: Baseline dementia. h/o TIA 2 mo ago- no ASA due to h/o GI bleeds. Alprazolam 0.5 mg PRN Ambien 5mg PO HS Pulmonary: On dropplet precautions for presumptive Influenza Continue Tamiflu and Levofloxacin 250mg as per ID. ID consult appreciated. Supplemental O2 to maintain O2 sat>90% repeat CXR and labs in AM follow up Cultures CV: ICD currently being paced. h/o Aortic and Mitral valve disease- last echo 6mo ago. with Dr. Snell Atorvastatin Calcium (Lipitor -) 10 mg PO HS Carvedilol (Coreg -) 3.125 mg PO BID Furosemide (Lasix Injection -) 40 mg IVPUSH DAILY Metalozone 5mg PO HS HD stable at this time history of GI bleeds requiring transfusion (last one >1yr ago); On iron supplementation. GI: h/o GI bleeds follow H/H NO ASA Renal: KO most likely pre-renal F/E/N: No IVF at this time Electrolytes WNL repeat AM labs. Sodium controlled diet. Dispo: Patient is stable enough to be transfered to MED/SURG. Visit type - Emergency Visit Emergency Visit: Yes ED Registration Date: 08/08/16 Care time: The patient presented to the Emergency Department on the above date and was hospitalized for further evaluation of their emergent condition. - New Patient This patient is new to me today: No - Critical Care Critical Care patient: Yes Total Critical Care Time (in minutes): 32 Critical Care Statement: The care of this patient involved high complexity decision making to prevent further life threatening deterioration of the patient 's condition and/or to evalute & treat vital organ system(s) failure or risk of failure.
--- NOTE | 2016-08-09 11:31 | PN ---
Teaching Attending Note Name of Resident: Lazaro Stover ATTENDING PHYSICIAN STATEMENT I saw and evaluated the patient. I reviewed the resident's note and discussed the case with the resident. I agree with the resident's findings and plan as documented. SUBJECTIVE: Pt seen and examined in the ICU. Denies shortness of breath or chest pain. No fevers since admission. OBJECTIVE: Last Vital Signs Temp Pulse Resp BP Pulse Ox 97.8 F 71 26 H 123/68 94 L 08/09/16 06:00 08/09/16 11:07 08/09/16 06:00 08/09/16 06:00 08/09/16 11:07 Intake & Output 08/06/16 08/07/16 08/08/16 08/09/16 23:59 23:59 23:59 23:59 Intake Total 200 100 Output Total 400 200 Balance -200 -100 Weight 96 lb 8 oz 94 lb 5.725 oz Gen: NAD at rest Heart: RRR Lung: basilar rales Abd: soft, nontender Ext: no edema CBC, BMP 08/09/16 05:00 08/09/16 05:00 CXR: pulmonary vascular congestion Active Medications Alprazolam (Xanax -) 0.5 mg PO HS PRN PRN Reason: ANXIETY Last Admin: 08/08/16 21:09 Dose: 0.5 mg Atorvastatin Calcium (Lipitor -) [address] [facility] Last Admin: 08/08/16 21:04 Dose: 10 mg Carvedilol (Coreg -) 3.[address] [facility] Last Admin: 08/09/16 09:59 Dose: 3.125 mg Ferrous Sulfate (Feosol -) [address] [facility] Furosemide (Lasix Injection -) [address] [facility] Last Admin: 08/09/16 09:59 Dose: 40 mg Levofloxacin (Levaquin 250 Mg Premixed Ivpb -) 50 mls @ 50 mls/hr IVPB DAILY [facility] Last Admin: 08/09/16 09:59 Dose: 50 mls/hr Metolazone (Zaroxolyn -) [address] [facility] Last Admin: 08/08/16 21:06 Dose: 5 mg Oseltamivir Phosphate (Tamiflu Oral Suspension -) [address] [facility] Stop: 08/12/16 22:01 Last Admin: 08/09/16 10:00 Dose: 60 mg Pantoprazole Sodium (Protonix -) [address] [facility] Last Admin: 08/08/16 21:04 Dose: 40 mg Potassium Chloride (Kcl Oral Solution -) [address] [facility] Last Admin: 08/09/16 09:59 Dose: 40 meq ASSESSMENT AND PLAN: r/o Pneumonia vs Influenza Acute on Chronic LV Diastolic Heart Failure Mitral Regurgitation CAD s/p ICD Dementia - continue antibiotics, tamiflu per ID - lasix, zaroxolyn - monitor urine output, creatinine - O2 to keep SpO2 >90% - d/c standing KCl - PO as tolerated - DVT prophylaxis
[2016-08-09] MEDS: FERROUS SO4 325 MG TABLET (FP) PO SCH (16:52)
[2016-08-09] MEDS: ALPRAZolam 0.25 MG TABLET PO PRN (18:20)
[2016-08-09] MEDS ORDERED: ALPRAZolam 0.25 MG TABLET PO PRN (19:34)
[2016-08-09] MEDS ORDERED: HALOPERIDOL LACTATE 5 MG/ML IM ONE (20:52)
[2016-08-09] MEDS: PANTOPRAZOLE 40 MG TABLET (FP) PO SCH (21:18)
[2016-08-09] MEDS: METOLAZONE 5 MG TABLET PO SCH (21:18)
[2016-08-09] MEDS: ATORVASTATIN CA 10 MG TABLET (FP) PO SCH (21:18)
[2016-08-10] MEDS ORDERED: LORAZEPAM CARPU-JECT 2 MG/ML DISP.SYRIN ONE (00:32)
[2016-08-10] MEDS ORDERED: LORAZEPAM CARPU-JECT 2 MG/ML DISP.SYRIN IVPUSH ONE (04:16)
[2016-08-10] MEDS ORDERED: PT OWN MED DRAWER 7, Y5N ONE ×3 (06:10→21:47)
[2016-08-10 06:37] LABS: BASOPHIL 0.2 % (0-2.0); EOSINOPHIL 0.8 % (0-4.5); MCH 29.3 pg (25.7-33.7); MCHC 33.4 g/dl (32.0-36.0); MEAN CELL VOLUME 87.9 fl (80-96); MEAN PLT VOLUME 8.3 fl (7.5-11.1); NEUTROPHILS 83.2 % (42.8-82.8); PLATELET COUNT 176 K/MM3 (134-434); RDW 16.5 % (11.6-15.6); WHITE BLOOD COUNT 8.4 K/mm3 (4.0-10.0)
--- NOTE | 2016-08-10 08:02 | PN ---
Progress Note, Physician Chief Complaint: Sleeping now after getting sedation during the night Levofloxacin and Oseltamavir - Current Medication List Current Medications: Active Medications Alprazolam (Xanax -) 0.25 mg PO Q8H PRN PRN Reason: ANXIETY Atorvastatin Calcium (Lipitor -) 10 mg PO HS [facility] Last Admin: 08/09/16 21:18 Dose: 10 mg Carvedilol (Coreg -) 3.125 mg PO BID [facility] Last Admin: 08/09/16 21:18 Dose: 3.125 mg Ferrous Sulfate (Feosol -) 325 mg PO DAILY [facility] Last Admin: 08/09/16 16:52 Dose: 325 mg Furosemide (Lasix Injection -) 40 mg IVPUSH DAILY [facility] Last Admin: 08/09/16 09:59 Dose: 40 mg Levofloxacin (Levaquin 250 Mg Premixed Ivpb -) 50 mls @ 50 mls/hr IVPB DAILY [facility] Last Admin: 08/09/16 09:59 Dose: 50 mls/hr Metolazone (Zaroxolyn -) 5 mg PO HS [facility] Last Admin: 08/09/16 21:18 Dose: 5 mg Oseltamivir Phosphate (Tamiflu Oral Suspension -) 60 mg PO BID [facility] Stop: 08/12/16 22:01 Last Admin: 08/09/16 21:19 Dose: 60 mg Pantoprazole Sodium (Protonix -) 40 mg PO [facility] Last Admin: 08/09/16 21:18 Dose: 40 mg - Objective Vital Signs: Vital Signs Temperature 97.8 F 08/10/16 06:00 Pulse Rate 63 08/10/16 07:57 Respiratory Rate 16 08/10/16 07:57 Blood Pressure 128/55 08/10/16 07:57 O2 Sat by Pulse Oximetry (%) 94 L 08/10/16 07:48 Constitutional: Yes: No Distress Neck: Yes: WNL, Supple Cardiovascular: Yes: Regular Rate and Rhythm, S1, S2 Respiratory: Yes: Rhonchi Gastrointestinal: Yes: WNL, Normal Bowel Sounds, Soft. No: Tenderness Edema: No Labs: CBC, BMP 08/10/16 06:00 08/09/16 05:00 INR, PTT INR 1.15 (0.82-1.09) H 08/08/16 05:14 Assessment/Plan Microbiology 08/08/16 19:30 Urine For Antigen Detection Legionella Antigen - Final 08/08/16 19:30 Urine For Antigen Detection Streptococcus pneumoniae Antigen (M - Final 08/08/16 05:14 Nasopharyngeal Swab Influenza Types A,B Antigen (JOJO) - Final 08/08/16 05:14 Nasopharyngeal Swab - Final 08/08/16 05:17 Blood - Peripheral Venous Blood Culture - Preliminary NO GROWTH OBTAINED AFTER 48 HOURS, INCUBATION TO CONTINUE FOR 3 DAYS. 08/08/16 05:14 Nasopharyngeal Swab Respiratory Virus Panel - Preliminary 08/08/16 05:14 Blood - Peripheral Venous Blood Culture - Preliminary NO GROWTH OBTAINED AFTER 48 HOURS, INCUBATION TO CONTINUE FOR 3 DAYS. Laboratory Tests 08/09/16 08/10/16 05:00 06:00 WBC 8.4 D Hgb 12.1 Hct 36.4 Plt Count 176 BUN 35 H Creatinine 1.5 H Assessment Therapy for fever and couph ? Influenza illness Plan Levoflox and Oseltamavit as ordered Transfer when available Stop isolation for influenza no fever and no couph Maggy CARO
[2016-08-10 08:49] LABS: CALCIUM 9.1 mg/dL (8.5-10.1); CREATININE 1.3 mg/dL (0.55-1.02)
[2016-08-10] MEDS: LEVOFLOXACIN 250 MG IVPB 50 ML IVPB SCH (10:10)
[2016-08-10] MEDS: FUROSEMIDE 40 MG/4 ML INJECTABLE VIAL IVPUSH SCH (10:10)
[2016-08-10] MEDS: FERROUS SO4 325 MG TABLET (FP) PO SCH (10:11)
[2016-08-10] MEDS: CARVEDILOL 3.125 MG TABLET (FP) PO SCH ×2 (10:11→21:48)
--- NOTE | 2016-08-10 11:03 | PN ---
Progress Note (short form) - Note Progress Note: Agitated,confused overnight. CBC, BMP 08/10/16 06:00 08/10/16 08:30 Vital Signs Period Temp Pulse Resp BP Sys/Torre Pulse Ox Last 24 Hr 97.6 F-98.0 F 60-88 16-28 107-142/49-101 94-96 S1S2 RRR coarse basal rales abd soft NT no edema eating well Imp CHF acute on chronic systolic pneumonia CAD flu-like symptoms HTN CKD Dementia Plan transfer to medical floor physical therapy medically much better dc planning Problem List - Problems (1) CHF (congestive heart failure) Code(s): I50.9 - HEART FAILURE, UNSPECIFIED Qualifiers: Congestive heart failure type: systolic Congestive heart failure chronicity: acute on chronic Qualified Code(s): I50.23 - Acute on chronic systolic (congestive) heart failure (2) Pneumonia Code(s): J18.9 - PNEUMONIA, UNSPECIFIED ORGANISM Qualifiers: Pneumonia type: due to unspecified organism Laterality: right Lung location: lower lobe of lung Qualified Code(s): J18.9 - Pneumonia, unspecified organism (3) Renal insufficiency Code(s): N28.9 - DISORDER OF KIDNEY AND URETER, UNSPECIFIED (4) Anemia Code(s): D64.9 - ANEMIA, UNSPECIFIED Qualifiers: Anemia type: unspecified type Qualified Code(s): D64.9 - Anemia, unspecified (5) Chronic kidney disease (CKD) Code(s): N18.9 - CHRONIC KIDNEY DISEASE, UNSPECIFIED Qualifiers: Chronic kidney disease stage: stage 3 (moderate) Qualified Code(s): N18.3 - Chronic kidney disease, stage 3 (moderate) (6) Dementia arising in the senium and presenium Code(s): F03.90 - UNSPECIFIED DEMENTIA WITHOUT BEHAVIORAL DISTURBANCE
--- NOTE | 2016-08-10 11:38 | PN ---
Teaching Attending Note Name of Resident: Lazaro Stover ATTENDING PHYSICIAN STATEMENT I saw and evaluated the patient. I reviewed the resident's note and discussed the case with the resident. I agree with the resident's findings and plan as documented. SUBJECTIVE: Pt seen and examined in the ICU. Agitated overnight, given sedation. Currently sleeping but no fevers recorded. OBJECTIVE: Last Vital Signs Temp Pulse Resp BP Pulse Ox 98.0 F 63 23 107/66 96 08/10/16 10:00 08/10/16 10:00 08/10/16 10:00 08/10/16 10:00 08/10/16 09:58 Intake & Output 08/07/16 08/08/16 08/09/16 08/10/16 23:59 23:59 23:59 23:59 Intake Total 200 750 0 Output Total 400 1350 300 Balance -200 -600 -300 Weight 96 lb 8 oz 94 lb 5.725 oz 92 lb 9.506 oz Gen: NAD at rest, breathing nonlabored Heart: RRR Lung: decreased breath sounds at the bases Abd: soft, nontender Ext: no edema CBC, BMP 08/10/16 06:00 08/10/16 08:30 CXR: pulmonary vascular congestion Active Medications Alprazolam (Xanax -) 0.25 mg PO Q8H PRN PRN Reason: ANXIETY Atorvastatin Calcium (Lipitor -) 10 mg PO HS [facility] Last Admin: 08/09/16 21:18 Dose: 10 mg Carvedilol (Coreg -) 3.125 mg PO BID [facility] Last Admin: 08/10/16 10:11 Dose: 3.125 mg Ferrous Sulfate (Feosol -) 325 mg PO DAILY [facility] Last Admin: 08/10/16 10:11 Dose: 325 mg Furosemide (Lasix Injection -) 40 mg IVPUSH DAILY [facility] Last Admin: 08/10/16 10:10 Dose: 40 mg Levofloxacin (Levaquin 250 Mg Premixed Ivpb -) 50 mls @ 50 mls/hr IVPB DAILY [facility] Last Admin: 08/10/16 10:10 Dose: 50 mls/hr Metolazone (Zaroxolyn -) 5 mg PO [facility] Last Admin: 08/09/16 21:18 Dose: 5 mg Oseltamivir Phosphate (Tamiflu Oral Suspension -) 60 mg PO BID [facility] Stop: 08/12/16 22:01 Last Admin: 08/09/16 21:19 Dose: 60 mg Pantoprazole Sodium (Protonix -) 40 mg PO HS [facility] Last Admin: 08/09/16 21:18 Dose: 40 mg ASSESSMENT AND PLAN: r/o Pneumonia vs Influenza Acute on Chronic LV Diastolic Heart Failure Mitral Regurgitation CAD s/p ICD Dementia - continue antibiotics, tamiflu per ID - lasix, zaroxolyn - monitor urine output, creatinine - O2 to keep SpO2 >90% - PO as tolerated - DVT prophylaxis - can monitor on floor
[2016-08-10] MEDS: OSELTAMIVIR PHOSPHATE 6 MG/1 ML - 60ML BOTTLE PO SCH ×2 (12:00→21:49)
--- NOTE | 2016-08-10 13:23 | PN ---
Physical Exam: SUBJECTIVE: Patient seen and examined at bedside. She had some increased aggitation last night. Sedation was given and the patient remains lethargic. Denies CP, FLORES, SOB, N/V. OBJECTIVE: Vital Signs Period Temp Pulse Resp BP Sys/Torre Pulse Ox Last 24 Hr 97.6 F-98.0 F 60-88 16-28 107-142/49-101 94-96 GENERAL:Thin, frail AAO x 2 in no acute distress. HEAD: Normal with no signs of trauma. EYES: Pupils equal, round and reactive to light, extraocular movements intact, sclera anicteric, conjunctiva clear. No lid lag. EARS, NOSE, THROAT: Ears normal, nares patent, oropharynx clear without exudates. Moist mucous membranes. NECK: Normal range of motion, supple without lymphadenopathy, JVD, or masses. LUNGS:Bilateral scattered rhonchi. Bibasilar fine crackles. No wheezes,No accessory muscle use. HEART: Regular rate and rhythm, normal S1 and S2 with 3/6 systolic ejection murmur. ABDOMEN: Soft, nontender,ventral hernia,not distended, normoactive bowel sounds , no guarding, no rebound, no masses. No hepatomegaly or splenomegaly. MUSCULOSKELETAL: Normal range of motion at all joints. No bony deformities or tenderness. No CVA tenderness. UPPER EXTREMITIES: 2+ pulses, warm, well-perfused. No cyanosis. No clubbing. Cap refill <2 seconds. No peripheral edema. LOWER EXTREMITIES: 2+ pulses, warm, well-perfused. No calf tenderness. trace edema LLE and 1+ RLE. NEUROLOGICAL: Cranial nerves II-XII intact. Normal speech. gait not obeserved. Pleasantly demented (currently at baseline.) PSYCHIATRIC: Cooperative. Good eye contact. Appropriate mood and affect. SKIN: Warm, dry, normal turgor, no rashes or lesions noted. Laboratory Results - last 24 hr 08/10/16 08/10/16 06:00 08:30 WBC 8.4 D RBC 4.14 Hgb 12.1 Hct 36.4 MCV 87.9 MCHC 33.4 RDW 16.5 H Plt Count 176 MPV 8.3 Neutrophils % 83.2 H Lymphocytes % 9.2 D Monocytes % 6.6 Eosinophils % 0.8 D Basophils % 0.2 Sodium 137 Potassium 3.8 D Chloride 102 Carbon Dioxide 33 H Anion Gap 2 L BUN 32 H Creatinine 1.3 H Random Glucose 92 Calcium 9.1 Active Medications Generic Name Dose Route Start Last Admin Trade Name Freq PRN Reason Stop Dose Admin Alprazolam 0.25 mg 08/09/16 19:34 Xanax - PO Q8H PRN ANXIETY Atorvastatin Calcium 10 mg 08/08/16 22:00 08/09/16 21:18 Lipitor - PO 10 mg HS MARVIN Administration Carvedilol 3.125 mg 08/08/16 22:00 08/10/16 10:11 Coreg - PO 3.125 mg BID MARVIN Administration Ferrous Sulfate 325 mg 08/09/16 10:45 08/10/16 10:11 Feosol - PO 325 mg DAILY MARVIN Administration Furosemide 40 mg 08/09/16 10:00 08/10/16 10:10 Lasix Injection - IVPUSH 40 mg DAILY MARVIN Administration Levofloxacin 50 mls @ 50 mls/hr 08/09/16 10:00 08/10/16 10:10 Levaquin 250 Mg Premixed Ivpb - IVPB 50 mls/hr DAILY MARVIN Administration Metolazone 5 mg 08/08/16 22:00 08/09/16 21:18 Zaroxolyn - PO 5 mg HS MARVIN Administration Oseltamivir Phosphate 60 mg 08/08/16 12:30 08/09/16 21:19 Tamiflu Oral Suspension - PO 08/12/16 22:01 60 mg BID MARVIN Administration Pantoprazole Sodium 40 mg 08/08/16 22:00 08/09/16 21:18 Protonix - PO 40 mg HS MARVIN Administration ASSESSMENT/PLAN: 89 yo F with PMHx CHF, CAD, and dementia admitted for Influenza PNA. Neuro: Baseline dementia. h/o TIA 2 mo ago- no ASA due to h/o GI bleeds. Alprazolam 0.5 mg PRN Ambien 5mg PO HS Pulmonary: On dropplet precautions for presumptive Influenza Continue Tamiflu and Levofloxacin 250mg as per ID. ID consult appreciated. Supplemental O2 to maintain O2 sat>90% repeat CXR and labs in AM cultures negative to this point. CV: ICD currently being paced. h/o Aortic and Mitral valve disease- last echo 6mo ago. with Dr. Snell Atorvastatin Calcium (Lipitor -) 10 mg PO HS Carvedilol (Coreg -) 3.125 mg PO BID Furosemide (Lasix Injection -) 40 mg IVPUSH DAILY Metalozone 5mg PO HS HD stable at this time history of GI bleeds requiring transfusion (last one >1yr ago); On iron supplementation. GI: h/o GI bleeds follow H/H NO ASA Renal: KO resolving. F/E/N: No IVF at this time Electrolytes WNL repeat AM labs. Sodium controlled diet. Visit type - Emergency Visit Emergency Visit: Yes ED Registration Date: 08/08/16 Care time: The patient presented to the Emergency Department on the above date and was hospitalized for further evaluation of their emergent condition. - New Patient This patient is new to me today: No - Critical Care Critical Care patient: Yes Total Critical Care Time (in minutes): 33 Critical Care Statement: The care of this patient involved high complexity decision making to prevent further life threatening deterioration of the patient 's condition and/or to evalute & treat vital organ system(s) failure or risk of failure.
--- NOTE | 2016-08-10 17:16 | CONSULT ---
Cardiology Consult (text) - Consultation Consultation Note: Cardiology Impression: severe aortic stenosis, mildly depressed LV systolic function DDD paced functioning well mild CHF, but BNP very high with mild to moderate CRF no major evidence of CAD history of anemia of unknown etiology Dementia Flu / pneumonia Rec: Diurese lasix / metolazone continue current RX cardiac eval and follow-up to continue
[2016-08-10] MEDS: ATORVASTATIN CA 10 MG TABLET (FP) PO SCH (21:48)
[2016-08-10] MEDS: PANTOPRAZOLE 40 MG TABLET (FP) PO SCH (21:48)
[2016-08-10] MEDS: METOLAZONE 5 MG TABLET PO SCH (21:49)
[2016-08-10] MEDS ORDERED: LORAZEPAM CARPU-JECT 2 MG/ML DISP.SYRIN IVPUSH PRN (22:45)
--- NOTE | 2016-08-11 08:32 | PN ---
Progress Note (short form) - Note Progress Note: CBC, BMP 08/10/16 06:00 08/10/16 08:30 Vital Signs Period Temp Pulse Resp BP Sys/Torre Pulse Ox Last 24 Hr 98.0 F-98.0 F 60-66 18-28 107-135/41-66 96-98 S1S2 RRR coarse basal rales-chronic abd soft NT no edema eating well Imp CHF acute on chronic systolic pneumonia CAD flu-like symptoms HTN CKD Dementia Plan medically much better dc planning awaiting PT eval to see if pt should go to [facility] or home evaluate for home o2 if goes home d/w daughter yesterday Problem List - Problems (1) CHF (congestive heart failure) Code(s): I50.9 - HEART FAILURE, UNSPECIFIED Qualifiers: Congestive heart failure type: systolic Congestive heart failure chronicity: acute on chronic Qualified Code(s): I50.23 - Acute on chronic systolic (congestive) heart failure (2) Pneumonia Code(s): J18.9 - PNEUMONIA, UNSPECIFIED ORGANISM Qualifiers: Pneumonia type: due to unspecified organism Laterality: right Lung location: lower lobe of lung Qualified Code(s): J18.9 - Pneumonia, unspecified organism (3) Renal insufficiency Code(s): N28.9 - DISORDER OF KIDNEY AND URETER, UNSPECIFIED (4) Anemia Code(s): D64.9 - ANEMIA, UNSPECIFIED Qualifiers: Anemia type: unspecified type Qualified Code(s): D64.9 - Anemia, unspecified (5) Chronic kidney disease (CKD) Code(s): N18.9 - CHRONIC KIDNEY DISEASE, UNSPECIFIED Qualifiers: Chronic kidney disease stage: stage 3 (moderate) Qualified Code(s): N18.3 - Chronic kidney disease, stage 3 (moderate) (6) Dementia arising in the senium and presenium Code(s): F03.90 - UNSPECIFIED DEMENTIA WITHOUT BEHAVIORAL DISTURBANCE
[2016-08-11 09:07] LABS: BASOPHIL 0.6 % (0-2.0); EOSINOPHIL 2.3 % (0-4.5); MCH 28.6 pg (25.7-33.7); MCHC 32.7 g/dl (32.0-36.0); MEAN CELL VOLUME 87.7 fl (80-96); MEAN PLT VOLUME 8.4 fl (7.5-11.1); NEUTROPHILS 68.3 % (42.8-82.8); PLATELET COUNT 177 K/MM3 (134-434); RDW 16.6 % (11.6-15.6); WHITE BLOOD COUNT 4.5 K/mm3 (4.0-10.0)
[2016-08-11] MEDS ORDERED: PT OWN MED DRAWER 7, Y5N ONE ×3 (09:16→23:06)
[2016-08-11 09:33] LABS: CALCIUM 9.1 mg/dL (8.5-10.1); CREATININE 1.3 mg/dL (0.55-1.02)
[2016-08-11] MEDS: FERROUS SO4 325 MG TABLET (FP) PO SCH (10:00)
[2016-08-11] MEDS: FUROSEMIDE 40 MG TABLET (FP) PO SCH (10:00)
[2016-08-11] MEDS: LEVOFLOXACIN 250 MG TABLET (FP) PO SCH (10:00)
[2016-08-11] MEDS: CARVEDILOL 3.125 MG TABLET (FP) PO SCH ×2 (10:01→22:15)
[2016-08-11] MEDS: OSELTAMIVIR PHOSPHATE 6 MG/1 ML - 60ML BOTTLE PO SCH (10:20)
--- NOTE | 2016-08-11 11:32 | PN ---
Teaching Attending Note Name of Resident: Lazaro Stover ATTENDING PHYSICIAN STATEMENT I saw and evaluated the patient. I reviewed the resident's note and discussed the case with the resident. I agree with the resident's findings and plan as documented. SUBJECTIVE: Patient seen and examined in the ICU. Awake and alert. Some dry cough. Intake & Output 08/08/16 08/09/16 08/10/16 08/11/16 23:59 23:59 23:59 23:59 Intake Total 200 750 250 Output Total 400 1350 1300 200 Balance -200 -600 -1050 -200 Weight 96 lb 8 oz 94 lb 5.725 oz 92 lb 9.506 oz 96 lb 8.999 oz Last Vital Signs Temp Pulse Resp BP Pulse Ox 98.0 F 60 18 115/43 98 08/10/16 14:00 08/11/16 09:06 08/11/16 09:06 08/11/16 09:06 08/11/16 10:08 Active Medications Atorvastatin Calcium (Lipitor -) 10 mg PO [facility] Last Admin: 08/10/16 21:48 Dose: 10 mg Carvedilol (Coreg -) 3.125 mg PO BID [facility] Last Admin: 08/11/16 10:01 Dose: 3.125 mg Ferrous Sulfate (Feosol -) 325 mg PO DAILY [facility] Last Admin: 08/11/16 10:00 Dose: 325 mg Furosemide (Lasix -) 40 mg PO DAILY [facility] Last Admin: 08/11/16 10:00 Dose: 40 mg Levofloxacin (Levaquin -) 250 mg PO DAILY@0600 [facility] Last Admin: 08/11/16 10:00 Dose: 250 mg Lorazepam (Ativan Injection -) 0.5 mg IVPUSH ONCE PRN PRN Reason: AGITATION Stop: 08/11/16 22:44 Metolazone (Zaroxolyn -) 5 mg PO [facility] Last Admin: 08/10/16 21:49 Dose: 5 mg Oseltamivir Phosphate (Tamiflu Oral Suspension -) 60 mg PO BID [facility] Stop: 08/12/16 22:01 Last Admin: 08/11/16 10:20 Dose: 60 mg Pantoprazole Sodium (Protonix -) 40 mg PO [facility] Last Admin: 08/10/16 21:48 Dose: 40 mg Gen: NAD at rest, breathing nonlabored Heart: RRR Lung: decreased breath sounds at the bases Abd: soft, nontender Ext: no edema Laboratory Results - last 24 hr 08/11/16 08/11/16 08:50 08:50 WBC 4.5 D RBC 4.19 Hgb 12.0 Hct 36.7 MCV 87.7 MCHC 32.7 RDW 16.6 H Plt Count 177 MPV 8.4 Neutrophils % 68.3 Lymphocytes % 18.1 D Monocytes % 10.7 H Eosinophils % 2.3 D Basophils % 0.6 Sodium 143 Potassium 3.6 Chloride 100 Carbon Dioxide 37 H Anion Gap 6 L BUN 41 H D Creatinine 1.3 H Random Glucose 87 Calcium 9.1 ASSESSMENT AND PLAN: Influenza Acute on Chronic LV Diastolic Heart Failure Mitral Regurgitation CAD s/p ICD Dementia - continue antibiotics, tamiflu per ID - lasix, zaroxolyn - monitor urine output, creatinine - O2 to keep SpO2 >90% - PO as tolerated - DVT prophylaxis - can monitor on floor Dr Mendoza
--- NOTE | 2016-08-11 11:34 | PN ---
Physical Exam: SUBJECTIVE: Patient seen and examined at bedside. No overnight events. No new complaints. Breathing is back to baseline. Denies CP, FLORES, SOB, palpitations, N/ V. OBJECTIVE: Vital Signs Period Temp Pulse Resp BP Sys/Torre Pulse Ox Last 24 Hr 98.0 F 60-66 18-24 110-135/41-66 98-98 GENERAL:Thin, frail AAO x 2 in no acute distress. HEAD: Normal with no signs of trauma. EYES: Pupils equal, round and reactive to light, extraocular movements intact, sclera anicteric, conjunctiva clear. No lid lag. EARS, NOSE, THROAT: Ears normal, nares patent, oropharynx clear without exudates. Moist mucous membranes. NECK: Normal range of motion, supple without lymphadenopathy, JVD, or masses. LUNGS:Bilateral scattered rhonchi. Bibasilar fine crackles. No wheezes,No accessory muscle use. HEART: Regular rate and rhythm, normal S1 and S2 with 3/6 systolic ejection murmur. ABDOMEN: Soft, nontender,ventral hernia,not distended, normoactive bowel sounds , no guarding, no rebound, no masses. No hepatomegaly or splenomegaly. MUSCULOSKELETAL: Normal range of motion at all joints. No bony deformities or tenderness. No CVA tenderness. UPPER EXTREMITIES: 2+ pulses, warm, well-perfused. No cyanosis. No clubbing. Cap refill <2 seconds. No peripheral edema. LOWER EXTREMITIES: 2+ pulses, warm, well-perfused. No calf tenderness. trace edema LLE and 1+ RLE. NEUROLOGICAL: Cranial nerves II-XII intact. Normal speech. gait not obeserved. Pleasantly demented (currently at baseline.) PSYCHIATRIC: Cooperative. Good eye contact. Appropriate mood and affect. SKIN: Warm, dry, normal turgor, no rashes or lesions noted. Laboratory Results - last 24 hr 08/11/16 08/11/16 08:50 08:50 WBC 4.5 D RBC 4.19 Hgb 12.0 Hct 36.7 MCV 87.7 MCHC 32.7 RDW 16.6 H Plt Count 177 MPV 8.4 Neutrophils % 68.3 Lymphocytes % 18.1 D Monocytes % 10.7 H Eosinophils % 2.3 D Basophils % 0.6 Sodium 143 Potassium 3.6 Chloride 100 Carbon Dioxide 37 H Anion Gap 6 L BUN 41 H D Creatinine 1.3 H Random Glucose 87 Calcium 9.1 Active Medications Generic Name Dose Route Start Last Admin Trade Name Freq PRN Reason Stop Dose Admin Atorvastatin Calcium 10 mg 08/08/16 22:00 08/10/16 21:48 Lipitor - PO 10 mg HS MARVIN Administration Carvedilol 3.125 mg 08/08/16 22:00 08/11/16 10:01 Coreg - PO 3.125 mg BID MARVIN Administration Ferrous Sulfate 325 mg 08/09/16 10:45 08/11/16 10:00 Feosol - PO 325 mg DAILY MARVIN Administration Furosemide 40 mg 08/11/16 10:00 08/11/16 10:00 Lasix - PO 40 mg DAILY MARVIN Administration Levofloxacin 250 mg 08/11/16 10:00 08/11/16 10:00 Levaquin - PO 250 mg DAILY@0600 MARVIN Administration Lorazepam 0.5 mg 08/10/16 22:45 Ativan Injection - IVPUSH 08/11/16 22:44 ONCE PRN AGITATION Metolazone 5 mg 08/08/16 22:00 08/10/16 21:49 Zaroxolyn - PO 5 mg HS MARVIN Administration Oseltamivir Phosphate 60 mg 08/08/16 12:30 08/11/16 10:20 Tamiflu Oral Suspension - PO 08/12/16 22:01 60 mg BID MARVIN Administration Pantoprazole Sodium 40 mg 08/08/16 22:00 08/10/16 21:48 Protonix - PO 40 mg HS MARVIN Administration ASSESSMENT/PLAN: 89 yo F with PMHx CHF, CAD, and dementia admitted for Influenza PNA. Neuro: Baseline dementia. h/o TIA 2 mo ago- no ASA due to h/o GI bleeds. Alprazolam 0.5 mg PRN Ambien 5mg PO HS Pulmonary: NO longer on precautions. Continue Tamiflu and Levofloxacin 250mg as per ID. ID consult appreciated. Supplemental O2 to maintain O2 sat>90% repeat CXR and labs in AM cultures negative to this point. CV: ICD and currently being paced. h/o Aortic and Mitral valve disease- last echo 6mo ago. with Dr. Snell Atorvastatin Calcium (Lipitor -) 10 mg PO HS Carvedilol (Coreg -) 3.125 mg PO BID Furosemide (Lasix Injection -) 40 mg IVPUSH DAILY Metalozone 5mg PO HS HD stable at this time history of GI bleeds requiring transfusion (last one >1yr ago); On iron supplementation. GI: h/o GI bleeds follow H/H NO ASA Renal: KO resolved. F/E/N: No IVF at this time Electrolytes WNL repeat AM labs. Sodium controlled diet. Visit type - Emergency Visit Emergency Visit: Yes ED Registration Date: 08/08/16 Care time: The patient presented to the Emergency Department on the above date and was hospitalized for further evaluation of their emergent condition. - New Patient This patient is new to me today: No - Critical Care Critical Care patient: Yes Total Critical Care Time (in minutes): 33 Critical Care Statement: The care of this patient involved high complexity decision making to prevent further life threatening deterioration of the patient 's condition and/or to evalute & treat vital organ system(s) failure or risk of failure.
[2016-08-11] MEDS ORDERED: LORAZEPAM CARPU-JECT 2 MG/ML DISP.SYRIN ONE (19:45)
[2016-08-11] MEDS: METOLAZONE 5 MG TABLET PO SCH (22:15)
[2016-08-11] MEDS: PANTOPRAZOLE 40 MG TABLET (FP) PO SCH (22:15)
[2016-08-11] MEDS: ATORVASTATIN CA 10 MG TABLET (FP) PO SCH (22:15)
[2016-08-11] MEDS ORDERED: LORAZEPAM CARPU-JECT 2 MG/ML DISP.SYRIN IVPUSH ONE (23:02)
[2016-08-12 07:39] LABS: MCH 27.9 pg (25.7-33.7); MCHC 32.5 g/dl (32.0-36.0); MEAN CELL VOLUME 85.9 fl (80-96); MEAN PLT VOLUME 9.1 fl (7.5-11.1); PLATELET COUNT 216 K/MM3 (134-434); RDW 16.7 % (11.6-15.6); WHITE BLOOD COUNT 4.5 K/mm3 (4.0-10.0)
[2016-08-12] MEDS: OSELTAMIVIR PHOSPHATE 6 MG/1 ML - 60ML BOTTLE PO SCH ×3 (07:58→21:37)
[2016-08-12] MEDS: LEVOFLOXACIN 250 MG TABLET (FP) PO SCH ×2 (07:58→15:32)
[2016-08-12 08:08] LABS: CALCIUM 8.5 mg/dL (8.5-10.1); CREATININE 1.3 mg/dL (0.55-1.02)
[2016-08-12] MEDS: FUROSEMIDE 40 MG TABLET (FP) PO SCH (09:20)
[2016-08-12] MEDS: FERROUS SO4 325 MG TABLET (FP) PO SCH (09:21)
[2016-08-12] MEDS: CARVEDILOL 3.125 MG TABLET (FP) PO SCH ×2 (09:21→21:37)
--- NOTE | 2016-08-12 09:59 | PN ---
Progress Note (short form) - Note Progress Note: PULMONARY/CCM Pt seen and examined in the ICU. No events overnight, no current complaints. Last Vital Signs Temp Pulse Resp BP Pulse Ox 98.2 F 79 21 120/70 99 08/12/16 02:06 08/12/16 04:00 08/12/16 04:00 08/12/16 02:06 08/11/16 20:12 Intake & Output 08/09/16 08/10/16 08/11/16 08/12/16 23:59 23:59 23:59 23:59 Intake Total 750 250 320 Output Total 1350 1300 1420 Balance -600 -1050 -1100 Weight 94 lb 5.725 oz 92 lb 9.506 oz 96 lb 8.999 oz Gen: NAD at rest Heart: RRR, +harsh systolic murmumr Lung: decreased breath sounds at the bases Abd: soft, nontender Ext: no edema CBC, BMP 08/12/16 06:00 08/12/16 06:00 Active Medications Atorvastatin Calcium (Lipitor -) 10 mg PO [facility] Last Admin: 08/11/16 22:15 Dose: 10 mg Carvedilol (Coreg -) 3.125 mg PO BID [facility] Last Admin: 08/12/16 09:21 Dose: 3.125 mg Ferrous Sulfate (Feosol -) 325 mg PO DAILY [facility] Last Admin: 08/12/16 09:21 Dose: 325 mg Furosemide (Lasix -) 40 mg PO DAILY [facility] Last Admin: 08/12/16 09:20 Dose: 40 mg Levofloxacin (Levaquin -) 250 mg PO DAILY@0600 [facility] Last Admin: 08/12/16 07:58 Dose: Not Given Metolazone (Zaroxolyn -) 5 mg PO [facility] Last Admin: 08/11/16 22:15 Dose: 5 mg Oseltamivir Phosphate (Tamiflu Oral Suspension -) 60 mg PO BID [facility] Stop: 08/12/16 22:01 Last Admin: 08/12/16 09:21 Dose: 60 mg Pantoprazole Sodium (Protonix -) 40 mg PO [facility] Last Admin: 08/11/16 22:15 Dose: 40 mg A/P r/o Pneumonia vs Influenza Acute on Chronic LV Diastolic Heart Failure Mitral Regurgitation CAD s/p ICD Dementia - complete antibiotics, tamiflu per ID - lasix, zaroxolyn - monitor urine output, creatinine - O2 to keep SpO2 >90% - PO as tolerated - DVT prophylaxis - can monitor on floor - d/c planning
--- NOTE | 2016-08-12 18:14 | PN ---
Progress Note (short form) - Note Progress Note: no new c/o no distress Intake & Output 08/09/16 08/10/16 08/11/16 08/12/16 23:59 23:59 23:59 23:59 Intake Total 750 250 320 300 Output Total 1350 1300 1420 Balance -600 -1050 -1100 300 Weight 94 lb 5.725 oz 92 lb 9.506 oz 96 lb 8.999 oz 96 lb 6.4 oz Laboratory Results - last 24 hr 08/12/16 08/12/16 06:00 06:00 WBC 4.5 RBC 4.41 Hgb 12.3 Hct 37.9 MCV 85.9 MCHC 32.5 RDW 16.7 H Plt Count 216 D MPV 9.1 Sodium 142 Potassium 3.4 L Chloride 98 Carbon Dioxide 38 H Anion Gap 6 L BUN 44 H Creatinine 1.3 H Random Glucose 92 Calcium 8.5 Vital Signs Period Temp Pulse Resp BP Sys/Torre Pulse Ox Last 24 Hr 97.8 F-98.2 F 60-79 18-31 101-122/52-70 99-99 S1S2 RRR coarse basal rales-chronic abd soft NT no edema eating well Imp CHF acute on chronic systolic pneumonia CAD flu-like symptoms HTN CKD Dementia Plan medically much better dc planning awaiting PT eval to see if pt should go to [facility] or home
[2016-08-12] MEDS ORDERED: HALOPERIDOL LACTATE 5 MG/ML IVPUSH STA (21:28)
[2016-08-12] MEDS ORDERED: HALOPERIDOL LACTATE 5 MG/ML ONE (21:33)
[2016-08-12] MEDS ORDERED: PT OWN MED DRAWER 7, Y5N ONE (21:34)
[2016-08-12] MEDS: METOLAZONE 5 MG TABLET PO SCH (21:37)
[2016-08-12] MEDS: PANTOPRAZOLE 40 MG TABLET (FP) PO SCH (21:37)
[2016-08-12] MEDS: ATORVASTATIN CA 10 MG TABLET (FP) PO SCH (21:37)
[2016-08-13] MEDS: LEVOFLOXACIN 250 MG TABLET (FP) PO SCH (05:59)
[2016-08-13] MEDS: FUROSEMIDE 40 MG TABLET (FP) PO SCH (11:09)
[2016-08-13] MEDS: CARVEDILOL 3.125 MG TABLET (FP) PO SCH ×2 (11:10→21:33)
[2016-08-13] MEDS: FERROUS SO4 325 MG TABLET (FP) PO SCH (11:10)
[2016-08-13] MEDS ORDERED: LORAZEPAM CARPU-JECT 2 MG/ML DISP.SYRIN IVPUSH ONE (21:15)
[2016-08-13] MEDS ORDERED: PT OWN MED DRAWER 7, Y5N ONE (21:21)
--- NOTE | 2016-08-13 21:22 | PN ---
Progress Note (short form) - Note Progress Note: no new c/o no distress CBC, BMP 08/12/16 06:00 08/12/16 06:00 Vital Signs Period Temp Pulse Resp BP Sys/Torre Pulse Ox Last 24 Hr 97.8 F-98.2 F 60-68 17-20 98-127/41-64 96 S1S2 RRR coarse basal rales-chronic abd soft NT no edema eating well Imp CHF acute on chronic systolic pneumonia CAD flu-like symptoms HTN CKD Dementia Plan medically much better dc planning awaiting PT eval to see if pt should go to [facility] or home
[2016-08-13] MEDS ORDERED: PANTOPRAZOLE 40 MG TABLET (FP) PO SCH (22:00)
[2016-08-13] MEDS ORDERED: ATORVASTATIN CA 10 MG TABLET (FP) PO SCH (22:00)
[2016-08-13] MEDS ORDERED: METOLAZONE 5 MG TABLET PO SCH (22:00)
[2016-08-14] MEDS: LEVOFLOXACIN 250 MG TABLET (FP) PO SCH (06:21)
--- NOTE | 2016-08-14 08:48 | PN ---
Progress Note (short form) - Note Progress Note: No issues over the weekend S1S2 RRR clear lungs ant. abd soft NT no edema eating well Imp CHF acute on chronic systolic pneumonia CAD flu-like symptoms HTN CKD Dementia Plan dc planning to [facility] Problem List - Problems (1) CHF (congestive heart failure) Code(s): I50.9 - HEART FAILURE, UNSPECIFIED Qualifiers: Congestive heart failure type: systolic Congestive heart failure chronicity: acute on chronic Qualified Code(s): I50.23 - Acute on chronic systolic (congestive) heart failure (2) Pneumonia Code(s): J18.9 - PNEUMONIA, UNSPECIFIED ORGANISM Qualifiers: Pneumonia type: due to unspecified organism Laterality: right Lung location: lower lobe of lung Qualified Code(s): J18.9 - Pneumonia, unspecified organism (3) Renal insufficiency Code(s): N28.9 - DISORDER OF KIDNEY AND URETER, UNSPECIFIED (4) Anemia Code(s): D64.9 - ANEMIA, UNSPECIFIED Qualifiers: Anemia type: unspecified type Qualified Code(s): D64.9 - Anemia, unspecified (5) Chronic kidney disease (CKD) Code(s): N18.9 - CHRONIC KIDNEY DISEASE, UNSPECIFIED Qualifiers: Chronic kidney disease stage: stage 3 (moderate) Qualified Code(s): N18.3 - Chronic kidney disease, stage 3 (moderate) (6) Dementia arising in the senium and presenium Code(s): F03.90 - UNSPECIFIED DEMENTIA WITHOUT BEHAVIORAL DISTURBANCE
[2016-08-14] MEDS: FERROUS SO4 325 MG TABLET (FP) PO SCH (09:01)
[2016-08-14] MEDS: CARVEDILOL 3.125 MG TABLET (FP) PO SCH (09:01)
[2016-08-14] MEDS: FUROSEMIDE 40 MG TABLET (FP) PO SCH (09:01)
[2016-08-14 13:30] VITALS: BP 113/53; PULSE 61; TEMP 97
--- NOTE | 2016-08-25 08:34 | DS ---
Physical Examination Vital Signs: Vital Signs Temperature 97.0 F L 08/14/16 10:00 Pulse Rate 61 08/14/16 10:00 Respiratory Rate 20 08/14/16 10:00 Blood Pressure 113/53 08/14/16 10:00 O2 Sat by Pulse Oximetry (%) 96 08/14/16 10:00 Constitutional: Yes: Calm Eyes: Yes: EOM Intact HENT: Yes: Normocephalic Neck: Yes: Trachea Midline Cardiovascular: Yes: Regular Rate and Rhythm Respiratory: Yes: CTA Bilaterally Edema: No Labs: CBC, BMP 08/12/16 06:00 08/12/16 06:00 Discharge Summary Reason For Visit: CHF,PNEUMONIA,RENAL INSUFFIENCY Hospital Course: Admitted for CHF acute on chronic systolic, pneumonia with fever and weakness, flu-like symptoms Was diuresed with iv lasix, was given levaquin and tamiflu for presumed influenza-of note later culture became positive for parainfluenza. Improved medically and was transferred to [facility]. Condition: Fair - Instructions Diet, Activity, Other Instructions: tamiflu finish end of Aug 12 levaquin finish on Aug 14 Referrals: Calos Snell MD [Primary Care Provider] - Disposition: LONG TERM FACILITY - Home Medications Comprehensive Discharge Medication List: Ambulatory Orders Pantoprazole Sodium [Protonix -] 40 mg PO HS 11/18/13 Metolazone 5 mg PO HS 03/16/14 Ferrous Sulfate 325 mg PO DAILY 05/27/16 Simvastatin [Zocor -] 10 mg PO HS 05/27/16 Potassium Chloride Oral Soln [KCl Oral Solution -] 40 meq PO BID cup 05/31/16 Carvedilol [Coreg -] 3.125 mg PO BID tablet 08/11/16 Furosemide [Lasix -] 40 mg PO DAILY tablet 08/11/16
== END 2016-08-14 12:09 | DRG 291 ==
LOC: JER 04:53 → JERBED 07:08 → JICU 16:45 → J5S 08-12 22:17
PROVIDERS: ADMIT Internal Medicine; ATTEND Internal Medicine
DX: I13.0 Hypertensive heart and chronic kidney disease with heart failure and stage 1 through stage 4 chronic kidney disease, or unspecified chronic kidney disease (principal); J18.9 Pneumonia, unspecified organism; I50.23 Acute on chronic systolic (congestive) heart failure; I25.10 Atherosclerotic heart disease of native coronary artery without angina pectoris; I44.7 Left bundle-branch block, unspecified; I35.0 Nonrheumatic aortic (valve) stenosis; F03.90 Unspecified dementia, unspecified severity, without behavioral disturbance, psychotic disturbance, mood disturbance, and anxiety; K57.90 Diverticulosis of intestine, part unspecified, without perforation or abscess without bleeding; D64.9 Anemia, unspecified; N18.3 Chronic kidney disease, stage 3 (moderate)
CPT/HCPCS: 36415; 71010-TC; 80048; 80053; 82310; 82550; 83605; 83735; 83880; 84100; 84484; 85025; 85027; 85610; 87040; 87254; 87804; 87899; 93005; 93010; 94761; 97116-GP; 97163-GP; 99284-25; G0480; G9019